=== PATIENT | male | born 1945 | race Caucasian/White ===

== ENCOUNTER 2020-06-09 10:17 | Outpatient (REF) | payer MEDICARE, OTHER, SELFPAY | END 2020-06-09 10:18 | disposition home or self-care (01) | LOC: HO.BBR 10:17 | PROVIDERS: PCP Internal Medicine; Visit Provider Internal Medicine Hematology | DX: Z13.89 Encounter for screening for other disorder (principal) ==

== ENCOUNTER 2020-09-08 09:56 | Outpatient (REF) | payer MEDICARE, OTHER, SELFPAY | END 2020-09-08 09:57 | disposition home or self-care (01) | LOC: HO.BBR 09:56 | PROVIDERS: Visit Provider Internal Medicine Hematology | DX: Z13.89 Encounter for screening for other disorder (principal) ==

== ENCOUNTER 2020-12-10 09:55 | Outpatient (REF) | payer MEDICARE, OTHER, SELFPAY | END 2020-12-10 09:56 | disposition home or self-care (01) | LOC: HO.BBR 09:55 | PROVIDERS: PCP Internal Medicine; Visit Provider Internal Medicine Hematology | DX: Z13.89 Encounter for screening for other disorder (principal) ==

== ENCOUNTER 2021-03-17 11:57 | Outpatient (REF) | payer MEDICARE, OTHER, SELFPAY | END 2021-03-17 11:58 | disposition home or self-care (01) | LOC: HO.BBR 11:57 | PROVIDERS: Visit Provider Internal Medicine Hematology | DX: Z13.89 Encounter for screening for other disorder (principal) ==

== ENCOUNTER 2021-06-30 12:03 | Outpatient (REF) | payer MEDICARE, OTHER, SELFPAY | END 2021-06-30 12:04 | disposition home or self-care (01) | LOC: HO.BBR 12:03 | PROVIDERS: Visit Provider Internal Medicine Hematology | DX: Z13.89 Encounter for screening for other disorder (principal) ==

== ENCOUNTER 2021-10-14 11:49 | Outpatient (REF) | payer MEDICARE, OTHER, SELFPAY | END 2021-10-14 11:50 | disposition home or self-care (01) | LOC: HO.BBR 11:49 | PROVIDERS: Visit Provider Internal Medicine Hematology | DX: Z13.89 Encounter for screening for other disorder (principal) ==

== ENCOUNTER 2022-01-13 11:54 | Outpatient (REF) | payer MEDICARE, OTHER, SELFPAY | END 2022-01-13 11:55 | disposition home or self-care (01) | LOC: HO.BBR 11:54 | PROVIDERS: Visit Provider Internal Medicine Hematology | DX: Z13.89 Encounter for screening for other disorder (principal) ==

== ENCOUNTER 2022-04-14 11:01 | Outpatient (REF) | payer MEDICARE, OTHER, SELFPAY | END 2022-04-14 11:02 | disposition home or self-care (01) | LOC: HO.BBR 11:01 | PROVIDERS: Visit Provider Internal Medicine Hematology | DX: Z13.89 Encounter for screening for other disorder (principal) ==

== ENCOUNTER 2022-08-17 10:00 | Outpatient (REF) | payer MEDICARE, OTHER, SELFPAY | END 2022-08-17 10:01 | disposition home or self-care (01) | LOC: HO.BBR 10:00 | PROVIDERS: Visit Provider Internal Medicine Hematology | DX: Z13.89 Encounter for screening for other disorder (principal) ==

== ENCOUNTER 2022-11-15 11:54 | Outpatient (REF) | payer MEDICARE, OTHER, SELFPAY | END 2022-11-15 11:55 | disposition home or self-care (01) | LOC: HO.BBR 11:54 | PROVIDERS: Visit Provider Internal Medicine Hematology | DX: Z13.89 Encounter for screening for other disorder (principal) ==

== ENCOUNTER 2023-02-15 11:59 | Outpatient (REF) | payer MEDICARE, OTHER, SELFPAY | END 2023-02-15 12:00 | disposition home or self-care (01) | LOC: HO.BBR 11:59 | PROVIDERS: PCP Internal Medicine; Visit Provider Internal Medicine Hematology | DX: Z13.89 Encounter for screening for other disorder (principal) ==

== ENCOUNTER 2023-09-05 13:56 | Outpatient (REF) | payer MEDICARE, OTHER, SELFPAY | END 2023-09-05 13:57 | disposition home or self-care (01) | LOC: HO.BBR 13:56 | PROVIDERS: PCP Internal Medicine; Visit Provider Internal Medicine Hematology | DX: Z13.89 Encounter for screening for other disorder (principal) ==

== ENCOUNTER 2024-01-10 11:05 | Outpatient (REF) | payer MEDICARE, OTHER, SELFPAY | END 2024-01-10 11:06 | disposition home or self-care (01) | LOC: HO.BBR 11:05 | PROVIDERS: Visit Provider Internal Medicine Hematology | DX: Z13.89 Encounter for screening for other disorder (principal) ==

== ENCOUNTER 2024-04-10 11:14 | Outpatient (REF) | payer MEDICARE, OTHER, SELFPAY | END 2024-04-10 11:15 | disposition home or self-care (01) | LOC: HO.BBR 11:14 | PROVIDERS: PCP Internal Medicine; Visit Provider Internal Medicine Hematology | DX: Z13.89 Encounter for screening for other disorder (principal) ==

== ENCOUNTER 2024-04-28 14:57 | Outpatient (REF) | payer MEDICARE, OTHER, SELFPAY | END 2024-04-28 14:58 | disposition home or self-care (01) | LOC: HO.BBR 14:57 | PROVIDERS: PCP Internal Medicine; Visit Provider Internal Medicine Hematology | DX: Z13.89 Encounter for screening for other disorder (principal) ==

== ENCOUNTER 2024-07-30 13:51 | Outpatient (REF) | payer MEDICARE, OTHER, SELFPAY ==
--- OUTSIDE RECORDS SUMMARY | 2024-07-30 16:34 | XMS_ITS | Clinical Summary ---
Author Organization [facility] Facility Address [address] [facility] [place] [address] Care Team Providers Care Ferry Hand Name Role Phone Raphael Manley MD Primary Care Provide r Allergies Active Allergy Reactions Criticality Noted Date Comments Lisinopril 12/19/2022 Medications cephalexin (KEFTAB) 500 MG tablet Take 500 mg by mouth Active glipiZIDE (GLUCOTROL XL) 2.5 MG 24 hr tablet Take 2.5 mg by mouth 1 (one) time each day Do not crush, chew, or split. Active ipratropium (ATROVENT) 0.03 % nasal spray Administer 2 sprays into each nostril every 12 (twelve) hours Active latanoprost (XALATAN) 0.005 % ophthalmic solution Administer 1 drop into both eyes every night Active Multiple Vitamin (multivitamin) tablet Take 1 tablet by mouth 1 (one) time each day Active pravastatin (PRAVACHOL) 10 MG tablet Take 10 mg by mouth 1 (one) time each day Active losartan (COZAAR) 25 MG tablet Take 25 mg by mouth 1 (one) time each day Active dorzolamide-juan manuel olol (COSOPT) 22.3-6.8 MG/ML ophthalmic solution Administer 1 drop into the left eye in the morning and 1 drop in the evening. Active Loratadine 10 MG capsule Take by mouth Activ e loratadine-pseu doephedrine (Claritin-D 12 Hour) 5-120 MG per 12 hr tablet Take 1 tablet by mouth in the morning and 1 tablet in the evening. Do not crush, chew, or split.. Active Active Problems No known active problems Family History Medical History Relation Comments Cancer Father Relation Status Comments Father Social History Tobacco Use Types Packs/Day Years Used Date Smoking Tobacco: Never Smokeless Tobacco: Never Tobacco Cessation:Counseling Given: Not Answered Alcohol Use Standard Drinks/Week Comments Yes 0 (1 standard drink = 0.6 oz pur e alcohol) Sex and Gender Information Value Date Recorded Sex Assigned at Not on file Legal Sex Male 3:31 PM EDT Gender Identity Not on file Sexual Orientation Not on file Last Filed Vital Signs Vital Sign Reading Time Taken Comments Blood Pressure 136/68 12/19/2022 3:24 PM EDT Pulse 73 12/19/2022 3:24 PM EDT Temperature - - Respiratory Rate - - Oxygen Saturation - - Inhaled Oxygen Concentration - - Weight 103 kg (226 lb) 12/19/2022 3:24 PM EDT Height - - Body Mass Index - - Plan of Treatment Health Maintenance Due Date Last Done Comments Hepatitis B Vaccine (2 of 3 - Hep B Twinrix 3-dose series) 03/18/2019 02/18/2019, 09/17/2018, 08/20/2018 Diabetes: Ophthalmology Exam 08/09/2022 Diabetes: Pedal Pulse Checked 08/09/2022 Diabetes: Sensory Foot Exam 08/09/2022 Diabetes: Visual Foot Exam 08/09/2022 Diabetes: Hemoglobin A1C 04/19/2023 01/18/2023 Influenza Vaccine (Season Ended) 2024 02/09/20 20, 02/09/2019 Pneumococcal Vaccine: 65+ Years Completed 5, 06/26/2013 Procedures Procedure Name Priority Date/Time Associated Diagnosis Comments HEMOGLOBIN A1C Routine 01/18/2023 7:56 AM EDT Stage 3a chronic kidney disease (HCC) Hypertensive nephrosclerosis Essential (primary) hypertension Renovascular hypertension from Last 3 Months or Most Recently Relevant to Health Maintenance Results * (ABNORMAL) Hemoglobin A1c (01/18/2023 7:56 AM EDT) Hemoglobin A1C 6.9(H) (4.0-5.6) % [facility] Comment: MONITORING: In known diabetic patients, hemoglobin A1c targets should be discussed with health care provider. DIAGNOSTIC USE: ??The [place] Diabetes Association (ADA) and the World Health Organization (WHO) recommend the use of HbA1c to diagnose diabetes using a threshold of 6.5%. Patients who have an HbA1c between 5.7% and 6.4% are considered at increased risk for developing diabetes in the future. CAUTION: Falsely low HbA1c results may be observed in patients with hemolytic anemia, homozygous forms of abnormal hemoglobin (e.g. SS, CC, SC), , recent blood loss or hemoglobin F greater than 7%. Fructosamine may be used as an alternate test in these cases. REFERENCE: ADA: Standards of Medical Care in Diabetes 2020, The Journal of Clinical and Applied Research and Education Volume 43, Supplement 1 Testing performed or reported by [facility], a Service of [facility], [address] [place] [address] José Suresh MD, Paste Up Worker [facility]# [id number] Blood (Blood, Venous) 01/18/2023 7:56 AM EDT 01/18/2023 7:57 AM EDT us Abdullahi Sherwood MD LAB BLOOD ORDERABLES Lindsey lerner Result [facility] from Last 3 Months or Most Recently Relevant to Health Maintenance Insurance MEDICARE [facility] MEDICARE [facility] Care Teams Ferry Hand Relationship Specialty Start Date End Date Raphael Manley MD [address] [place], [place] PCP - General Internal Medicine 08/08/22
== END 2024-07-30 13:52 | disposition home or self-care (01) ==
LOC: HO.BBR 13:51
PROVIDERS: PCP Internal Medicine; Visit Provider Internal Medicine Hematology
DX: Z13.89 Encounter for screening for other disorder (principal)

== ENCOUNTER 2024-10-29 13:02 | Outpatient (REF) | payer MEDICARE, OTHER, SELFPAY ==
--- OUTSIDE RECORDS SUMMARY | 2024-10-29 13:37 | XMS_ITS | Clinical Summary ---
Author Organization [facility] Facility Address [address] [facility] [address] [place] [address] Care Team Providers Care Insurance Appraiser Name Role Phone Raphael Manley MD Primary [...] Ended) 2024 02/09/20 20, 02/09/2019 Pneumococcal Vaccine: 50+ Years Completed 5, 06/26/2013 Procedures Procedure Name Priority Date/Time Associated Diagnosis Comments HEMOGLOBIN A1C Routine 01/18/2023 7:56 AM EDT Stage 3a chronic kidney disease (HCC) Hypertensive nephrosclerosis Essential (primary) hypertension Renovascular hypertension from Last 3 Months or Most Recently Relevant to Health Maintenance Results * (ABNORMAL) Hemoglobin A1c (01/18/2023 7:56 AM EDT) Hemoglobin A1C 6.9(H) (4.0-5.6) % [facility] Comment: MONITORING: In known diabetic patients, hemoglobin A1c targets should be discussed with health care provider. DIAGNOSTIC USE: The [place] Diabetes Association (ADA) and the World Health [...] Supplement 1 Testing performed or reported by [facility], a Service of [facility], [address] [place] [id number] José Suresh MD, Ware Finisher [facility]# [id number] Blood specimen (specimen) Venous blood / Unknown 01/18/2023 7:56 AM EDT 01/18/2023 7:57 AM EDT Abdullahi Sherwood MD LAB BLOOD ORDERABLES Lindsey l Result [facility] from Last 3 Months or Most Recently Relevant to Health Maintenance Insurance Medicare [facility] Medicare [facility] Care Teams Insurance Appraiser Relationship Specialty Start Date End Date Raphael Manley MD [address] [place], [place] PCP - General Internal Medicine 08/08/22
--- OUTSIDE RECORDS SUMMARY | 2024-10-29 13:37 | XMS_ITS | Patient Health Record ---
Author Organization [facility] Address [address] [place], [place] [id number] Care Team Providers Care Personal Lines Underwriter Name Role Phone Raphael Manley Primary Care Provider U Tyrel valles Asla Unavailable [phone] Reason For Referral No Information Medications Medication SIG (Take, Route, Frequency, Duration) Notes Start Date End Date Status ipratropium nasal 21 mcg/inh intranasally bid for 30 day(s) Active lisinopril 5 mg orally qd for 30 day(s) Active Keflex 500 mg orally prn for 10 day(s) Active CeleBREX 200 mg orally qd for 30 day(s) Active aspirin 325 mg orally qd for 30 day(s) Active pravastatin 10 mg orally qd for 30 day(s) Active Xalatan 0.005% in each eye qd for 3 0 day(s) Active multi vitamin qd Active Problems Problem Type SNOMED Code ICD Code Onset Dates Problem Status W/U Status Risk Notes Problem Arthralgia of the ankle and/or foot (316892959) Pain foot/ankle (hardware) (719.47) Active confirmed Plan Of Treatment Pending Test Test Name Order Date Foot, right (AP,LAT) 03/11/2012 BUN 02/23/2012 CREATININE 02/23/2012 ELECTROLYTES 02/23/2012 EKG (pre-operative) 02/23/2012 Foot, right WB (AP,LAT,OBL) 02/23/2012 Insurance Providers Payer Name Payer Address Payer Phone Subscriber Number Group Number Insured Name Patient Relationship to Insured Coverage Start Date Coverage End Date MEDICARE CMS 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
== END 2024-10-29 13:03 | disposition home or self-care (01) ==
LOC: HO.BBR 13:02
PROVIDERS: PCP Internal Medicine; Visit Provider Internal Medicine Hematology
DX: Z13.89 Encounter for screening for other disorder (principal)

== ENCOUNTER 2024-12-31 13:01 | Outpatient (REF) | payer MEDICARE, OTHER, SELFPAY ==
--- OUTSIDE RECORDS SUMMARY | 2024-12-31 15:21 | XMS_ITS | Patient Health Record ---
Author Organization [facility] Address [address] [place], [place] [id number] Care Team Providers Care Real Estate Listing Consultant Name Role Phone Raphael Manley Primary Care Provider U Tyrel valles Asla Unavailable [phone] Reason For Referral No Information Medications Medication SIG (Take, Route, Frequency, Duration) Notes Start Date End Date Status ipratropium nasal 21 mcg/inh intranasally bid; Duration: 30 day(s) Active lisinopril 5 mg orally qd; Duration: 30 day(s) Active Keflex 500 mg orally prn; Duration : 10 day(s) Active CeleBREX 200 mg orally qd; Duration: 30 day(s) Active aspirin 325 mg orally qd; Duration: 30 day(s) Active pravastatin 10 mg orally qd; Duration: 30 day(s) Active Xalatan 0.005% in each eye qd; Dura tion: 30 day(s) Active multi vitamin qd Active Problems Problem Type SNOMED Code ICD Code Onset Dates Problem Status W/U Status Risk Notes Problem Arthralgia of the ankle and/or foot (678564866) Pain foot/ankle (hardware) (719.47) Active confirmed Plan Of Treatment Pending Test Test Name Order Date Foot, right (AP,LAT) 03/11/2012 BUN 02/23/2012 CREATININE 02/23/2012 ELECTROLYTES 02/23/2012 EKG (pre-operative) 02/23/2012 Foot, right WB (AP,LAT,OBL) 02/23/2012 Insurance Providers Payer Name Payer Address Payer Phone Subscriber Number Group Number Insured Name Patient Relationship to Insured Coverage Start Date Coverage End Date MEDICARE CMS [address] [id number] Ted Simeon Self - patient is the insured [facility] [address] [place], [place] [id number] Cailin Ted Self - patient is the insured Medical (General) History Medical History History ICD Code Hypertension SLEEP APNEA High cholesterol Osteoarthritis Surgical History Surgery Date(Month/Year) Right Foot Removal of Hardware 03/04/12 R KATE Left TKA Left kneee repair Hernia, Umbilical Right cuneonavicular arthodesis RJD 12/30 008 T & A
--- OUTSIDE RECORDS SUMMARY | 2024-12-31 15:21 | XMS_ITS | Clinical Summary ---
Author Organization [facility] Facility Address [address] [facility] [address] [place] [address] Care Team Providers Care Water Plant Operator Name Role Phone Raphael Manley MD Primary [...] Diabetes: Hemoglobin A1C 04/19/2023 01/18/2023 Influenza Vaccine (#1) 2024 02/09/2020, 2018 Pneumococcal Vaccine: 50+ Years Completed 5, 06/26/2013 Procedures Procedure Name Priority Date/Time Associated Diagnosis Comments HEMOGLOBIN A1C Routine 01/18/2023 7:56 AM EDT Stage 3a chronic kidney disease (HCC) Hypertensive nephrosclerosis Essential (primary) hypertension Renovascular hypertension from Last 3 Months or Most Recently Relevant to Health Maintenance Results * (ABNORMAL) Hemoglobin A1c (01/18/2023 7:56 AM EDT) Hemoglobin A1C 6.9(H) (4.0-5.6) % [facility] Comment: MONITORING: In known diabetic patients, hemoglobin A1c targets should be discussed with health care provider. DIAGNOSTIC USE: The [place] Diabetes Association (ADA) and the World Health [...] Supplement 1 Testing performed or reported by [facility], a Service of [facility], [address] [place] [address] José Suresh MD, Gerentological Physiotherapist [facility]# [id number] Blood specimen (specimen) Venous blood / Unknown 01/18/2023 7:56 AM EDT 01/18/2023 7:57 AM EDT us Abdullahi Sherwood MD LAB BLOOD ORDERABLES Lindsey l Result [facility] from Last 3 Months or Most Recently Relevant to Health Maintenance Insurance Medicare [facility] Medicare [facility] Care Teams Water Plant Operator Relationship Specialty Start Date End Date Raphael Manley MD [address] [place], [place] PCP - General Internal Medicine 08/08/22
== END 2024-12-31 13:02 | disposition home or self-care (01) ==
LOC: HO.BBR 13:01
PROVIDERS: PCP Internal Medicine; Visit Provider Internal Medicine Hematology
DX: Z13.89 Encounter for screening for other disorder (principal)